=== PATIENT | female | born 1945 | race Caucasian/White ===

== ENCOUNTER → 2020-03-23 10:40 | Outpatient (BNVA) | payer MEDICARE, OTHER, SELFPAY | PROVIDERS: Family Provider Nurse Practitioner Family; PCP Nurse Practitioner; Visit Provider Nurse Practitioner Family | DX: I10 Essential (primary) hypertension (principal); E55.9 Vitamin D deficiency, unspecified; E78.5 Hyperlipidemia, unspecified; M15.9 Polyosteoarthritis, unspecified; M79.642 Pain in left hand; Z13.820 Encounter for screening for osteoporosis; Z12.31 Encounter for screening mammogram for malignant neoplasm of breast | CPT/HCPCS: 80053; 80061; 82306; 85025 ==

== ENCOUNTER 2020-05-11 13:11 | Outpatient (CLI) | payer MEDICARE, OTHER, SELFPAY ==
--- NOTE | 2020-05-11 13:30 | MM_ITS ---
WS: [id number] BILATERAL DIGITAL SCREENING MAMMOGRAPHY WITH CAD CLINICAL INFORMATION: screening HISTORY: Screening mammogram. No current complaints. COMPARISON: April 19, 2019 TECHNIQUE: Bilateral CC and MLO views. FINDINGS: Scattered fibroglandular densities bilaterally. No suspicious focal mass, asymmetry, calcifications, or architectural distortion. No evidence of malignancy. A few punctate calcifications MM/[place] [id number] IMPRESSION: BI-RADS: 2-Benign FOLLOW UP: 1 Year Follow-up Recommend return to annual screening mammography.
--- NOTE | 2020-05-11 14:01 | XR_ITS ---
WS: [id number] DEXA (DUAL ENERGY X-RAY ABSORPTIOMETRY) Bone mineral density was performed using a [employer] machine. HISTORY: screening bone density COMPARISON: None available. Lumbar spine BMD (L1-L4): 1.233 g/cm2 T score: 0.4 Z score: 2.1 Total hip BMD: Left: 0.954 g/cm2. T score: -0.4 Z score: 1.2 Right: 0.881 g/cm2. T score: -1.0 Z score: 0.6 10 year probability of a major osteoporotic fracture is 10%. Mild LEFT convex curvature lower lumbar spine. XR/XR DEXA axial skeleton* [id number] IMPRESSION: NORMAL BONE MINERAL DENSITY based upon the WHO classification for females.
== END 2020-05-11 13:12 | disposition home or self-care (01) ==
LOC: RADSHAW 13:19
PROVIDERS: PCP Nurse Practitioner Family; Visit Provider Nurse Practitioner Family
DX: Z12.31 Encounter for screening mammogram for malignant neoplasm of breast (principal); Z78.0 Asymptomatic menopausal state
CPT/HCPCS: 77067; 77080

== ENCOUNTER 2021-08-09 08:40 | Outpatient (CLI) | payer MEDICARE, OTHER, SELFPAY ==
--- NOTE | 2021-08-09 08:58 | MM_ITS ---
WS: [id number] BILATERAL DIGITAL SCREENING MAMMOGRAPHY WITH CAD CLINICAL INFORMATION: SCREENING HISTORY: Screening mammogram. No current complaints. COMPARISON: May 11, 2020 TECHNIQUE: Bilateral CC and MLO views. FINDINGS: Scattered fibroglandular densities bilaterally. A few tiny incidental punctate calcifications. No junior picious focal mass, asymmetry, calcifications, or architectural distortion. No evidence of malignancy . MM/[id number] IMPRESSION: BI-RADS: 2-Benign FOLLOW UP: 1 Year Follow-up Recommend return to annual screening mammography.
== END 2021-08-09 08:41 | disposition home or self-care (01) ==
LOC: RADSHAW 08:51
PROVIDERS: PCP Nurse Practitioner Family; Visit Provider Family Medicine
DX: Z12.31 Encounter for screening mammogram for malignant neoplasm of breast (principal)
CPT/HCPCS: 77067

== ENCOUNTER → 2021-10-06 15:02 | Outpatient (BNVA) | payer MEDICARE, OTHER, SELFPAY | PROVIDERS: PCP Nurse Practitioner Family; Referring Provider Family Medicine; Visit Provider Specialist | DX: M25.561 Pain in right knee (principal); M17.11 Unilateral primary osteoarthritis, right knee | CPT/HCPCS: 73560; 73565 ==

== ENCOUNTER → 2021-12-08 12:58 | Outpatient (BNVA) | payer MEDICARE, OTHER, SELFPAY | PROVIDERS: PCP Nurse Practitioner Family; Visit Provider Specialist | DX: M17.11 Unilateral primary osteoarthritis, right knee (principal) | CPT/HCPCS: 99213 ==

== ENCOUNTER 2022-01-18 10:48 | Outpatient (CLI) | payer MEDICARE, OTHER, SELFPAY ==
--- NOTE | 2022-01-18 12:03 | XRR_ITS ---
PROCEDURE INFORMATION: Exam: XR Right Foot Exam date and time: 01/18/2022 12:06 PM Age: 76 years old Clinical indication: Injury or trauma; Other: See below; Blunt trauma; Injury details: History--tree limb slammed back against foot and lower leg on right side; Additional info: R foot pain TECHNIQUE: Imaging protocol: Radiologic exam of the Right foot. Views: 3 or more views. COMPARISON: CR XR knees AP WB w RT lmt ORTH 10/06/2021 3:16 PM FINDINGS: Bones/joints: Small plantar calcaneal spur. Degenerative changes are noted with joint space narrowing, osteophyte formation and sclerosis at medial TMT joints. Mild 1st MTP joint degenerative disease is also noted. No acute fracture dislocation or suspicious bony lesion. There is a tiny type 1 accessory navicular. A small well corticated ossific density is also noted adjacent to the distal fibula on the 1st image which may represent intra-articular body or an old injury. Soft tissues: There is probable forefoot dorsal soft tissue swelling. No soft tissue gas. Lateral malleolar soft tissue swelling. Other findings: Three views submitted. XR/XR foot RT min 3V* [id number] IMPRESSION: No acute fracture. Other findings as above.
--- NOTE | 2022-01-18 12:03 | XRR_ITS ---
PROCEDURE INFORMATION: Exam: XR Right Tibia and Fibula Exam date and time: 01/18/2022 12:06 PM Age: 76 years old Clinical indication: Injury or trauma; Other: See below; Blunt trauma; Injury details: History--tree limb slammed back against foot and lower leg on right side; Additional info: Pain in R lower leg TECHNIQUE: Imaging protocol: Radiologic exam of the Right tibia and fibula. Views: 2 views. COMPARISON: CR XR knees AP WB w RT lmt ORTH 10/06/2021 3:16 PM FINDINGS: Bones/joints: No acute fracture dislocation. Mild knee joint osteoarthritis, partially visualized with probable lateral compartment joint space narrowing. Lateral malleolar region soft tissue swelling. Soft tissues: See Bones/joints finding. Other findings: Two views submitted. XR/XR tibia fibula RT 2V [id number] IMPRESSION: No acute fracture dislocation. Other findings as above.
== END 2022-01-18 10:49 | disposition home or self-care (01) ==
LOC: RAD 10:53
PROVIDERS: PCP Nurse Practitioner Family; Visit Provider Nurse Practitioner Family
DX: M79.671 Pain in right foot (principal)
CPT/HCPCS: 73590; 73630

== ENCOUNTER 2022-01-21 11:17 | Outpatient (CLI) | payer MEDICARE, OTHER, SELFPAY ==
--- NOTE | 2022-01-21 11:24 | USCV_ITS ---
Ryan Lia Age: 76 Gender: F : 1945 Exam Date: 01/21/2022 12:27 Ordering Phys: Gretchen Roger APN Technologist: Mike Hernandez Exam Location: [facility] – [place] Indication: pain in right lower leg PROCEDURES: Venous duplex imaging was performed in only the right lower extremity. The following venous structures were evaluated: common femoral vein, profunda vein, proximal portion of the greater saphenous vein, superficial femoral vein, and the popliteal vein. In addition, the posterior tibial and peroneal trunk were evaluated. Serial compression, augmentation maneuvers, and spectral Doppler flow evaluation were performed. FINDINGS: Normal 2-D Doppler and augmentation and compressibility throughout the lower extremity venous structures. Additional imaging through the proximal calf veins also reveals no thrombus. Limited evaluation of the greater saphenous vein is patent with no thrombus. CONCLUSIONS No DVT right lower extremity. Dr. Luh Encinas DO (Electronically Signed) Final Date: 21 January 2022 15:03 S
== END 2022-01-21 11:18 | disposition home or self-care (01) ==
LOC: RAD 11:19
PROVIDERS: PCP Nurse Practitioner Family; Visit Provider Nurse Practitioner Family
DX: M79.661 Pain in right lower leg (principal)
CPT/HCPCS: 93971

== ENCOUNTER → 2022-01-27 13:09 | Outpatient (BNVA) | payer MEDICARE, OTHER, SELFPAY | PROVIDERS: PCP Family Medicine; Visit Provider Nurse Practitioner Family | DX: L03.115 Cellulitis of right lower limb (principal); I96 Gangrene, not elsewhere classified; L97.519 Non-pressure chronic ulcer of other part of right foot with unspecified severity | CPT/HCPCS: 11042; 87070; 87176; 87205; 99203; 99213 ==

== ENCOUNTER → 2022-02-03 12:58 | Outpatient (BNVA) | payer MEDICARE, OTHER, SELFPAY | PROVIDERS: PCP Family Medicine; Visit Provider Nurse Practitioner Family | DX: I96 Gangrene, not elsewhere classified (principal); L97.519 Non-pressure chronic ulcer of other part of right foot with unspecified severity | CPT/HCPCS: 11042 ==

== ENCOUNTER 2022-04-06 06:00 | Outpatient (RCR) | payer MEDICARE, OTHER, SELFPAY | END 2022-04-08 23:59 | disposition home or self-care (01) | LOC: TPT 06:00 | PROVIDERS: PCP Family Medicine; Visit Provider Nurse Practitioner Family | DX: M25.561 Pain in right knee (principal); M25.511 Pain in right shoulder; G89.29 Other chronic pain | CPT/HCPCS: 97110; 97163 ==

== ENCOUNTER 2022-04-09 06:00 | Outpatient (RCR) | payer MEDICARE, OTHER, SELFPAY | END 2022-05-09 23:59 | disposition home or self-care (01) | LOC: TPT 06:00 | PROVIDERS: PCP Family Medicine; Visit Provider Nurse Practitioner Family | DX: M25.561 Pain in right knee (principal); M25.511 Pain in right shoulder | CPT/HCPCS: 97110 ==

== ENCOUNTER → 2022-08-19 11:55 | Outpatient (BNVA) | payer MEDICARE, OTHER, SELFPAY | PROVIDERS: PCP Family Medicine; Visit Provider Clinical Nurse Specialist Adult Health | DX: I10 Essential (primary) hypertension (principal) | CPT/HCPCS: 80048; 83735 ==

== ENCOUNTER 2022-08-29 11:59 | Outpatient (CLI) | payer MEDICARE, OTHER, SELFPAY ==
--- NOTE | 2022-08-29 12:15 | USCV_ITS ---
Lia Davis Age: 77 Gender: F : 1945 Exam Date: 08/29/2022 12:48 Ordering Phys: Ishan Castañeda NP Technologist: Exam Location: [facility] – [place] Indication: new murmur BP: 138 / 78 HR: 72 Rhythm: Sinus Technical Quality: Adequate MEASUREMENTS (Male / Female) Normal Values 2D ECHO LV Diastolic Diameter PLAX 3.2 cm 4.2 - 5.9 / 3.9 - 5.3 cm LV Systolic Diameter PLAX 2.2 cm IVS Diastolic Thickness 0.8 cm 0.6 - 1.0 / 0.6 - 0.9 cm IVS Systolic Thickness 1.1 cm LVPW Diastolic Thickness 1.0 cm 0.6 - 1.0 / 0.6 - 0.9 cm LVPW Systolic Thickness 1.3 cm LVOT Diameter 2.0 cm LV Ejection Fraction 2D Teich 61.5 % LV Ejection Fraction MOD 2C 70.3 % LV Ejection Fraction 2C AL 71.3 % LA Diameter 3.4 cm Aorta at Sinotubular Diameter 2.9 cm IVC Diameter 1.4 cm M-MODE Aortic Annulus Diameter 3.6 cm LA Ao Ratio MM 1.1 MV E Point Septal Separation 0.7 cm DOPPLER AV Peak Velocity 146.0 cm/s LVOT Peak Velocity 132.0 cm/s AV Area Cont Eq vti 2.7 cm squared AV Area Cont Eq pk 2.8 cm squared MV Area PHT 2.2 cm squared Mitral E to A Ratio 0.7 MV E' Velocity 38.0 cm/s Mitral E to MV E' Ratio 7.3 Mitral E to LV E' Lateral Ratio 7.5 Mitral E to LV E' Septal Ratio 7.2 TR Peak Velocity 135.7 cm/s TR Peak Gradient 7.4 mmHg TV Peak E Velocity 90.0 cm/s Right Atrial Pressure 3.0 mmHg Pulmonary Artery Systolic Pressu 10.4 mmHg RV Acceleration Time 0.1 s FINDINGS Left Ventricle Left ventricle is normal in size. LV systolic function is normal with EF of 55-60%. Grade 1 diastolic dysfunction Right Ventricle Normal in size and function Right Atrium Normal in size Left Atrium There is an echogenic structure seen in the left atrium. It may be artifact vs mass vs aneurysmal interatrial septum. Mitral Valve Structurally normal mitral valve. Trace mitral regurgitation. Aortic Valve Structurally normal aortic valve. No significant stenosis or regurgitation. Tricuspid Valve Mild tricuspid regurgitation. Insufficient TR jet to calculate RVSP Pulmonic Valve Not well visualized Pericardium Trivial pericardial effusion Aorta Normal in size IVC Normal in size CONCLUSIONS LV systolic function is normal with EF of 55-60% Grade 1 diastolic dysfunction There is an echogenic structure seen in the left atrium. It may be artifact vs mass vs aneurysmal interatrial septum Trace mitral regurgitation Mild tricuspid regurgitation Trivial pericardial effusion No comparison studies are available Long Castaneda MD (Electronically Signed) Final Date: 29 August 2022 17:25 S
--- NOTE | 2022-08-29 12:45 | USCV_ITS ---
Lia Davis Age: 77 Gender: F : 1945 Exam Date: 08/29/2022 12:24 Ordering Phys: Ishan Castañeda NP Technologist: CATHY Exam Location: [facility] [place] Indication: High BP Risk Factors: Previous Vascular Surgery: Right Brachial BP: / Left Brachial BP: / Right Left Velocity (cm/s) Spectral Plaque Velocity (cm/s) Spectral Plaque Syst/Diast Broadening Syst/Diast Broadening 65.10/ 18.70 Prox CCA 77.20 / 25.40 65.10/ 18.70 Mid CCA 63.90 / 19.80 70.60/ 24.30 Distal CCA 49.70 / 13.20 94.80/ 28.70 Prox ICA 51.30 / 19.70 70.60/ 22.10 Mid ICA 73.50 / 29.10 51.80/ 19.80 Distal ICA 59.80 / 24.80 87.10 ECA 90.60 1.34 ICA/CCA 0.95 Antegrade Vertebral Antegrade 67.30/ 13.20 cm/s 68.40/ 23.90 cm/s Tri Subclavian Tri 114.7 121.3 0 0 CONCLUSIONS Right ICA stenosis <50%. Left ICA stenosis <50%. Normal antegrade Doppler flow noted in the right vertebral artery. Normal antegrade Doppler flow noted in the left vertebral artery. Remington Bustos MD (Electronically Signed) Final Date: 29 August 2022 13:13 S
== END 2022-08-29 12:00 | disposition home or self-care (01) ==
PROVIDERS: PCP Family Medicine; Visit Provider Clinical Nurse Specialist Adult Health
DX: I10 Essential (primary) hypertension (principal); R01.1 Cardiac murmur, unspecified; E78.5 Hyperlipidemia, unspecified; I65.23 Occlusion and stenosis of bilateral carotid arteries; I08.1 Rheumatic disorders of both mitral and tricuspid valves
CPT/HCPCS: 93306; 93880

== ENCOUNTER → 2022-09-14 10:34 | Outpatient (BNVA) | payer MEDICARE, OTHER, SELFPAY | PROVIDERS: PCP Family Medicine; Visit Provider Specialist | DX: M19.011 Primary osteoarthritis, right shoulder (principal) | CPT/HCPCS: 20610; 73030; 99214; J1100; J2795; J3301 ==

== ENCOUNTER 2022-09-15 12:43 | Outpatient (CLI) | payer MEDICARE, SELFPAY ==
--- NOTE | 2022-09-15 13:10 | MM_ITS ---
WS: [id number] Bilateral screening 3D tomosynthesis digital mammogram, 09/15/2022 Clinical Data: SCREENING Comparison: 08/09/2021, 05/11/2020, 05/20/2019, 07/22/2016, 07/07/2015, 07/26/2013, 07/13/2011, 10/09/2010, . Findings: The breast parenchymal pattern shows fibroglandular tissue. No spiculated masses or clustered calcifi cations are seen. There are no secondary signs of carcinoma. MM/[place] [id number] Impression: 1. Negative bilateral mammogram unchanged. 2. Recommend annual screening mammograms. BIRADS: 1-Negative FOLLOW UP: 1 Year Follow-up The CAD wrap checker was used.
== END 2022-09-15 12:44 | disposition home or self-care (01) ==
PROVIDERS: PCP Family Medicine; Visit Provider Family Medicine
DX: Z12.31 Encounter for screening mammogram for malignant neoplasm of breast (principal)
CPT/HCPCS: 77063; 77067

== ENCOUNTER 2022-09-21 06:00 | Outpatient (RCR) | payer MEDICARE, OTHER, SELFPAY | END 2022-10-07 23:59 | disposition home or self-care (01) | LOC: SPT 06:00 | PROVIDERS: PCP Family Medicine; Visit Provider Specialist | DX: M17.11 Unilateral primary osteoarthritis, right knee (principal) | CPT/HCPCS: 97110; 97140; 97162 ==

== ENCOUNTER 2022-10-08 06:00 | Outpatient (RCR) | payer MEDICARE, OTHER, SELFPAY | END 2022-11-06 23:59 | disposition home or self-care (01) | LOC: SPT 06:00 | PROVIDERS: PCP Family Medicine; Visit Provider Specialist | DX: M19.011 Primary osteoarthritis, right shoulder (principal) | CPT/HCPCS: 97110; 97140 ==

== ENCOUNTER → 2022-11-03 12:58 | Outpatient (BNVA) | payer MEDICARE, OTHER, SELFPAY | PROVIDERS: PCP Family Medicine; Visit Provider Internal Medicine | DX: R01.1 Cardiac murmur, unspecified (principal); I10 Essential (primary) hypertension; R93.1 Abnormal findings on diagnostic imaging of heart and coronary circulation | CPT/HCPCS: 93005; 99204 ==

== ENCOUNTER 2022-11-18 10:13 | Day surgery (SDC) | payer MEDICARE, OTHER, SELFPAY ==
[2022-11-16 14:32] VITALS: BMI 27.8
--- NOTE | 2022-11-18 10:38 | USCV_ITS ---
Lia Davis Age: 77 Gender: F : 1945 Exam Date: 11/18/2022 12:17 Ordering Phys: Long Castaneda M.D ([email or web address]) Technologist: TABITHA Exam Location: [facility] [place] [facility] [place] Indication: atrial mass BP: / HR: Rhythm: Sinus Technical Quality: Adequate MEASUREMENTS (Male / Female) Normal Values Medications Complications None Proc. Components After anesthesia team sedated patient, we proceeded with advancing EDGAR probe. FINDINGS Left Ventricle LV systolic function is normal. Right Ventricle Grossly normal Right Atrium Normal in size Left Atrium Normal in size LA Appendage No JUNE thrombus IA Septum Aneurysmal. No evidnece of intracardiac shunting seen on the bubble study Mitral Valve Structurally normal Aortic Valve Structurally normal Tricuspid Valve Grossly normal Pulmonic Valve Grossly normal Pericardium Trivial pericardial effusion Aorta CONCLUSIONS LV systolic function is normal. No left atrial appendage thrombus seen. Interatrial septum is aneurysmal. This was likely seen in limited quality transthoracic echocardiogram needing rule out of atrial mass. No intracardiac shunting noted on buddle study Long Castaneda MD (Electronically Signed) Final Date: 26 Nov 2022 13:53 S
[2022-11-18] MEDS: sodium chloride 0.9% 1,000 ML 30 ML IV (10:49)
[2022-11-18 10:52] VITALS: BP 162/105; PULSE 95; RESP 18; TEMP 36.3; O2SAT 98
--- NOTE | 2022-11-18 11:49 | W.PM.OPSUD ---
Surgery/Procedure H&P Update DATE OF PROCEDURE: November 18, 2022 DATE H&P PERFORMED: 11/03/22 H&P UPDATE INFORMATION: I have reviewed H&P completed within last 30 days, I have examined patient prior to procedure and No changes to prior documentation PREOP DIAGNOSIS: Rule out left atrial mass PRIMARY INDICATION FOR PROCEDURE: Rule out left atrial mass PLANNED PROCEDURE: Operation Date: 11/18/22 12:00 Proposed Procedures p EDGAR 56490,I51.89(Not Applicable) - Long Castaneda M.D PATIENT REASSESSED PRIOR TO SEDATION, WITH NO CHANGE NOTED: Yes PHYSICAL EXAM: alert, oriented x 3, clear to auscultation bilaterally and regular rate & rhythm AIRWAY EVAL/ANESTHESIA PLAN: normal airway, ASA III, Local Anesthesia, Risks, benefits & alternatives of sedation and/or procedure discussed and Patient agrees to continue as planned ADDITIONAL INFORMATION: Moderate sedation
--- NOTE | 2022-11-18 12:17 | ANES.PREANE2 ---
Pre-Anesthetic Assessment Height/Weight: Height 1.57 m Weight 68.946 kg Temp Pulse Resp BP Pulse Ox O2 Del Method 97.4 F L 95 18 162/105 98 Room Air 11/18/22 10:52 11/18/22 10:52 11/18/22 10:52 11/18/22 10:52 11/18/22 10:52 11/18/22 10:52 Preop Diagnosis: Rule out left atrial mass Operation Date: 11/18/22 12:00 Proposed Procedures p EDGAR 25715,I51.89(Not Applicable) - Long Castaneda M.D Familial anesthetic complications: PONV Was Beta Juan taken within 24 hours: N/A Was Clonidine taken within 24 hours: N/A Last intake: Intake Last Liquid Date 11/17/22 Last Liquid Time 22:00 Last Solid Date 11/17/22 Last Solid Time 22:00 Social No alcohol and No tobacco Exam alert and oriented x 3 Airway Submandibular: within normal limits Cervical ROM: within normal limits Mallampati: Class II Dentition: full History/ROS No significant history except as noted Pulmonary None reported CV/HEM Hypertension None reported Hepatic None reported GI None reported Metabolic None reported Musc/skel None reported Neuropsych None reported Anesthetic Plan ASA status: 2 Anesthesia: Anesthesia Evaluation and MAC Risk of > 500 ml blood loss (7ml/kg in children): No Medications/Allergies Home Medications Medication Instructions Recorded Confirmed Last Taken Type multivitamin 1 tab PO DAILY 03/23/20 11/16/22 11/17/22 History ascorbic acid (vitamin C) 1,000 mg 1 g PO Q6H 11/07/22 11/16/22 11/17/22 History capsule cholecalciferol (vitamin D3) 25 25 mcg PO DAILY 11/07/22 11/16/22 11/17/22 History mcg (1,000 unit) capsule glucosamine sulfate 1,000 mg 1,000 mg PO DAILY 11/07/22 11/16/22 11/17/22 History capsule lisinopril 10 mg tablet 10 mg PO DAILY #90 tabs 11/07/22 11/16/22 11/17/22 Rx sulindac 200 mg tablet 200 mg PO QDAY inflammation #90 11/09/22 11/16/22 11/17/22 Rx tabs Allergies Allergy/AdvReac Type Severity Reaction Status Date / Time meloxicam Allergy Unknown Unknown Verified 11/18/22 10:54 cephalexin [From Keflex] Allergy ALGY-Rash Verified 11/18/22 10:54 Current Medications Generic Name Dose Route Start Last Admin Trade Name Pawan PRN Reason Stop Dose Admin Sodium Chloride 1,000 mls @ 30 mls/hr 11/18/22 10:45 11/18/22 10:49 Sodium Chloride 0.9% IV 11/19/22 10:44 30 mls/hr .Q24H MARGO Administration PFSH Anesthesia Medical History Hyperlipidemia Hypertension Osteoarthritis Rectocele Vitamin D deficiency Surgical History Hx of bladder repair surgery Hx of colonoscopy Hx of right hemicolectomy Family History Father Cancer Lung and Brain cancers. Mother Cancer Esophogeal cancer Family/Other , Breast cancer No problems noted. Family/Other , Denies a family history of Uterine, ovarian, pancreatic, colon, and thyroid cancers No problems noted. Denies family history of Clotting disorder Bleeding disorder Social History Smoking and tobacco status: never smoked Second hand smoke exposure: No Alcohol intake: never Substance/Drug Use: never Lives independently: Yes Household members: spouse Marital status: Current occupational status: retired Current gender identity: Female Data Anesthesia Cardiac Studies: Echocardiogram 08/29/22
[2022-11-18 12:36] VITALS: BP 128/85; PULSE 80; RESP 18; TEMP 36.2; O2SAT 92
[2022-11-18 12:50] VITALS: BP 140/93; PULSE 75; RESP 18; O2SAT 93
[2022-11-18 13:00] VITALS: BP 146/97; PULSE 67; RESP 18; O2SAT 98
== END 2022-11-18 12:31 | disposition home or self-care (01) ==
PROVIDERS: PCP Family Medicine; Visit Provider Internal Medicine
PROC: (CPT 93312; principal; 2022-11-18 12:00)
DX: I51.89 Other ill-defined heart diseases (principal); E78.5 Hyperlipidemia, unspecified
CPT/HCPCS: 93312; 93320; 93325; J2704; J7030

== ENCOUNTER → 2023-01-19 10:53 | Outpatient (BNVA) | payer MEDICARE, OTHER, SELFPAY | PROVIDERS: PCP Family Medicine; Visit Provider Specialist | DX: M19.011 Primary osteoarthritis, right shoulder (principal) | CPT/HCPCS: 20610; J1100; J2795; J3301 ==

== ENCOUNTER 2023-01-24 15:33 | Outpatient (CLI) | payer MEDICARE, OTHER, SELFPAY ==
--- NOTE | 2023-01-24 16:00 | MR_ITS ---
WS: [id number] MRI RIGHT SHOULDER NONCONTRAST TECHNIQUE: Sagittal T2, coronal T1, T2 and proton density imaging. Axial gradient PDE imaging. CLINICAL INFORMATION: osteoarthritis of right shoulder COMPARISON: None. FINDINGS: Moderate to advanced degenerative arthritis AC joint with mild edema and hypertrophic changes. Narrow ing of the subacromial space. Subacromial spurring with impingement on the distal supraspinatus. Smal l shoulder effusion. Subcoracoid effusion. Advanced subchondral cystic changes involving the humeral head with mild flattening. Advanced degenerative changes at the glenohumeral articulation. Hypertrophic spurring along the humeral head. High-grade tear involving the distal supraspinatus with a tiny remnant. Retracted portion to the glenohumeral articulation. Infraspinatus appears intact. Pr otruding dorsal hypertrophic osteophyte best appreciated on the sagittal and axial imaging measuring 12 mm. This is deep to the teres minor muscle belly and tendon. Chronic thinning of the teres minor. Subscapularis appears intact. Biceps tendon appears intact within the bicipital groove. Chronic advan lyla degenerative fraying of the glenohumeral labrum with advanced joint space narrowing. MR/MR shoulder RT wo con* [id number] IMPRESSION: 1. Advanced osteoarthritis at the AC joint and glenohumeral articulation. Narr owing of the subacromial space with impingement on the distal supraspinatus. 2. High-grade tear of the supraspinatus with a small amount of remnant tendon. Majority of the supraspinatus is retracted to the glenohumeral joint. 3. Infraspinatus appears intact. 4. 12 mm protruding dorsal osteophyte deep to the teres minor muscle belly and tendon with dorsal displacement. 5. Biceps tendon appears intact within the bicipital groove. 6. Advanced degenerative arthritis RIGHT glenohumeral articulation with joint space narrowing and extensive subchondral cystic change involving the humeral h ead with flattening. Small joint effusion.
== END 2023-01-24 15:34 | disposition home or self-care (01) ==
PROVIDERS: PCP Family Medicine; Visit Provider Specialist
DX: M19.011 Primary osteoarthritis, right shoulder (principal); M75.101 Unspecified rotator cuff tear or rupture of right shoulder, not specified as traumatic; M25.711 Osteophyte, right shoulder; M25.411 Effusion, right shoulder
CPT/HCPCS: 73221

== ENCOUNTER → 2023-02-13 14:22 | Outpatient (BNVA) | payer MEDICARE, OTHER, SELFPAY | PROVIDERS: PCP Family Medicine; Visit Provider Specialist | DX: M19.011 Primary osteoarthritis, right shoulder (principal); M75.101 Unspecified rotator cuff tear or rupture of right shoulder, not specified as traumatic | CPT/HCPCS: 99214 ==

== ENCOUNTER → 2023-04-27 09:10 | Outpatient (BNVA) | payer MEDICARE, OTHER, SELFPAY | PROVIDERS: PCP Family Medicine; Visit Provider Specialist | DX: M19.011 Primary osteoarthritis, right shoulder; M75.101 Unspecified rotator cuff tear or rupture of right shoulder, not specified as traumatic; Z71.89 Other specified counseling | CPT/HCPCS: 20610; J1100; J2795; J3301 ==

== ENCOUNTER → 2023-10-17 08:54 | Outpatient (BNVA) | payer MEDICARE, OTHER, SELFPAY | PROVIDERS: PCP Family Medicine; Visit Provider Family Medicine | DX: I10 Essential (primary) hypertension (principal); R01.1 Cardiac murmur, unspecified; E78.5 Hyperlipidemia, unspecified; E55.9 Vitamin D deficiency, unspecified; M17.11 Unilateral primary osteoarthritis, right knee; M19.011 Primary osteoarthritis, right shoulder; Z13.6 Encounter for screening for cardiovascular disorders | CPT/HCPCS: 80053; 80061; 82652; 85025 ==

== ENCOUNTER → 2024-12-03 12:14 | Outpatient (BNVA) | payer MEDICARE, OTHER, SELFPAY | PROVIDERS: PCP Family Medicine; Visit Provider Family Medicine | DX: I10 Essential (primary) hypertension (principal); E78.5 Hyperlipidemia, unspecified; E55.9 Vitamin D deficiency, unspecified; M17.11 Unilateral primary osteoarthritis, right knee | CPT/HCPCS: 80053; 80061; 82306; 85025 ==

== ENCOUNTER 2025-01-22 10:30 | Outpatient (CLI) | payer MEDICARE, OTHER, SELFPAY ==
--- NOTE | 2025-01-22 10:40 | MM_ITS ---
WS: [id number] BILATERAL 3D TOMOSYNTHESIS DIGITAL SCREENING MAMMOGRAPHY WITH CAD CLINICAL INFORMATION: SCREENING HISTORY: Screening mammogram. No current complaints. COMPARISON: 2022 TECHNIQUE: Bilateral CC and MLO views. FINDINGS: Scattered fibroglandular densities bilaterally. No suspicious focal mass, asymmetry, calcifications, or architectural distortion. No evidence of malignancy. MM/MM scr BI tomosynthesis [id number] IMPRESSION: DENSITY: There are scattered areas of fibroglandular density. BI-RADS: 1 - Negative. FOLLOW UP: 1 Year Follow-up Recommend return to annual screening mammography.
== END 2025-01-22 10:31 | disposition home or self-care (01) ==
LOC: MOBLMAM 10:33
PROVIDERS: PCP Specialist; Visit Provider Specialist
DX: Z12.31 Encounter for screening mammogram for malignant neoplasm of breast (principal); R92.323 Mammographic fibroglandular density, bilateral breasts
CPT/HCPCS: 77063; 77067